=== PATIENT | male | born 1955 | race Caucasian/White ===

== ENCOUNTER 2016-04-29 09:12 | Emergency (ER) | payer BC ==
--- NOTE | ~2016-04-29 | CT98 ---
[facility] A Service of [facility] RADIOLOGY TEXT RESULTS PATIENT: KERRI ONEAL LOCATION: [facility] : 59 UNIT #: [id number] AGE: [address]: Patti Carter APRN SEX: M ORDER DR: [id number] [facility] [address] [place] [place], [place] [address] [id number] E MR#: [id number] Acc #: [id number] NAME: KERRI ONEAL. : 1955 SEX: M STUDY DATE/TIME: 04/29/2016 11:55 UNIT: [facility] ROOM: STUDY DESCRIPTION: CT Lumbar Spine Wo Cont Attending Physician: Patti Carter A.P.R.N. Ordering Physician: [facility] Primary Care Physician: Zhou Dodd M.D. MEDICAL IMAGING REPORT This report is preliminary unless electronic signature is present EXAM CT lumbar spine without contrast 04/29/2016 HISTORY 60-year-old male with low back pain status post fall today. History of prior lumbar spine fracture, March 2015. TECHNIQUE Helical scan performed through the lumbar spine without IV contrast. Coronal and sagittal reformatted images. The CT exam was performed with one or more of the following radiation dose reduction techniques: automatic exposure control, adjustment of mA and/or kV according to patient size, and iterative reconstruction. The CT exam was performed with one or more of the following radiation dose reduction techniques: automatic exposure control, adjustment of mA and/or kV according to patient size, and iterative reconstruction. FINDINGS There is again noted a chronic compression fracture of the L5 vertebral body resulting in greater than 50% vertebral body height loss. This is not significantly changed from prior examination 03/28/2015. There is an indeterminate age compression fracture of superior endplate of the L4 vertebral body which is new since 03/28/2015. This results and approximately 30% vertebral body height loss. There is minimal bony retropulsion into the spinal canal, but no evidence of significant canal stenosis. Remaining lumbar vertebral body heights and alignment are normally maintained. Disc spaces are adequately maintained. Mild multilevel facet degeneration. Paravertebral soft tissues are unremarkable. [facility] A Service of [facility] RADIOLOGY TEXT RESULTS PATIENT: KERRI ONEAL LOCATION: [facility] : 59 UNIT #: [id number] AGE: [address]: Patti Carter APRN SEX: M ORDER DR: IMPRESSION 1. Indeterminate age compression fracture superior endplate L4 vertebral body. This results in 30% vertebral body height loss and minimal bony retropulsion into the spinal canal, but no evidence of significant canal stenosis. This fracture is new since the CT lumbar spine from 03/28/2015. Further characterization with a non emergent lumbar spine MRI is recommended for accurate chronicity. 2. Chronic compression fracture L5 vertebral body, unchanged from prior exam. Dictated by... Margarito Sanchez M.D. THIS IS AN ELECTRONICALLY VERIFIED REPORT Margarito Sanchez M.D. at 05/01/2016 8:31 AM PETROS/santy TD: 04/30/2016 09:56 JOB #: [id number] MEDICAL IMAGING REPORT Page 1 of 1 COPY
--- NOTE | ~2016-04-29 | CR181 ---
[facility] A Service of [facility] & [facility] RADIOLOGY TEXT RESULTS PATIENT: KERRI ONEAL LOCATION: [facility] : 59 UNIT #: [id number] AGE: [address]: Patti Carter APRN SEX: M ORDER DR: [id number] [facility] [address] [place], [place] [address] [id number] MR#: [id number] Acc #: [id number] NAME: KERRI ONEAL. : 1955 SEX: M STUDY DATE/TIME: 04/29/2016 9:36 UNIT: [facility] ROOM: STUDY DESCRIPTION: CR Lumbar Spine 2 or 3 Views Attending Physician: Patti Carter A.P.R.N. Ordering Physician: Shane Antonio M.D. Primary Care Physician: Zhou Dodd M.D. MEDICAL IMAGING REPORT This report is preliminary unless electronic signature is present EXAM Lumbar spine 04/29/2016 HISTORY 60-year-old male with low back pain after feeling a "pop" today. History of previous lumbar spine fracture, March 2015. COMPARISON Lumbar spine 03/28/2015. FINDINGS 3 views of the lumbar spine again demonstrate a chronic compression fracture of the L5 vertebral body resulting in at least 50% vertebral body height loss. There is an indeterminate age compression fracture of the superior endplate of the L4 vertebral body. This is new since the previous study from 03/28/2015, but technically indeterminate in age. This can be further characterized with a non-emergent lumbar spine MRI to better assess chronicity. Remaining lumbar vertebral body heights and alignment are normally maintained. There is mild multilevel facet degeneration. Extensive atherosclerotic calcification of the abdominal aorta. Visualized sacrum and SI joints appear intact. IMPRESSION 1. Chronic compression fracture of the L5 vertebral body. 2. Indeterminate age compression fracture of the superior endplate of the L4 vertebral body resulting in approximately slightly less than 25% vertebral body height loss. This is new since the prior study from 03/28/2015, but of uncertain chronicity. Consider further evaluation with a non-emergent lumbar spine MRI to better assess chronicity. Dictated by... Margarito Sanchez M.D. [facility]. 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 at 05/01/2016 8:30 AM PETROS/lizz TD: 04/30/2016 09:15 JOB #: [id number] MEDICAL IMAGING REPORT Page 1 of 1 COPY
[2016-04-29 11:29] LABS: BASOPHIL# 0.1 X10e3 (0-0.3); BASOPHIL% 0.7 % (0-2.5); DIFF IND NO; EOSINOPHIL# 0.1 X10e3 (0-0.7); EOSINOPHIL% 1.5 % (0.0-7.0); HEMATOCRIT 37.8 % (38.0-50.0); HEMOGLOBIN 12.8 gm/dL (13.0-16.0); LYMPHOCYTE% 13.3 % (17.0-45.0); MEAN CELL VOLUME 93.7 FL (83-96); MEAN CORPUSCULAR HEMOGLOBIN 31.7 PG (28-34); MEAN CORPUSCULAR HGB CONC 33.8 g/dL (30-36); MEAN PLATELET VOLUME 10.6 FL (6.5-11.5); MONOCYTE# 0.3 X10e3 (0-1.0); MONOCYTE% 4.6 % (3.0-12.0); NEUTROPHIL% 79.9 % (40-75); PLATELET COUNT 105 X10e3 (140-420); RED BLOOD COUNT 4.04 X10e (3.90-5.60); WHITE BLOOD COUNT 7.6 X10e3 (4.0-10.5)
[2016-04-29 12:12] LABS: BLOOD UREA NITROGEN 13 mg/dL (9-23); BUN/CREATININE RATIO 14.44; CALCIUM SERUM 9.2 mg/dL (8.4-10.2); CARBON DIOXIDE 30 mmol/L (22-31); CHLORIDE 102 mmol/L (100-111); CREATININE SERUM 0.9 mg/dL (0.6-1.4); GLOM FILT RATE Estimated ABOVE60 mL/min (>60); GLUCOSE FASTING 87 mg/dL (70-110); POTASSIUM 4.2 mmol/L (3.5-5.1); SODIUM 141 mmol/L (135-145)
== END 2016-04-29 13:58 | disposition home or self-care (01) ==
LOC: CED 09:12
PROVIDERS: Nurse Practitioner
DX: J44.9 Chronic obstructive pulmonary disease, unspecified (principal); Z87.891 Personal history of nicotine dependence; S33.5XXA Sprain of ligaments of lumbar spine, initial encounter; X58.XXXA Exposure to other specified factors, initial encounter; Y92.009 Unspecified place in unspecified non-institutional (private) residence as the place of occurrence of the external cause
CPT/HCPCS: 36415; 72100; 72131; 80048; 85025; 96372; 99284; J2270